=== PATIENT | female | born 1980 | race Caucasian/White ===

== ENCOUNTER → 2017-12-02 | Outpatient (CLI) | payer BC ==
[~2017-12-02] MED LIST: ALPR0.5T PO; BUPR300T43 PO; CLIN25GE TP; HYDR-3729 PO; IBUP-1773 PO; SPIR25TA PO; ZOLP10TA PO
--- NOTE | 2017-12-02 12:15 | Diagnostic Imaging Report ---
INDICATION: Dysfunction uterine bleeding. TECHNIQUE: Multiple realtime grayscale images were obtained of the pelvis in various projections endovaginally. Transabdominal imaging was also performed. FINDINGS: The uterus measures 8.2 x 5.2 x 4.4 cm. No myometrial mass is identified. There appears to be an IUD centered within the endometrial canal. Endometrium is approximately 11 mm in thickness. There is some heterogeneity of the endometrium near the cervix with some mild vascularity. No discrete cervical mass was visualized. The right ovary measures 2.2 x 2.4 x 2.4 cm and the left ovary measures 3.5 x 3.7 x 2.4 cm. The left ovary does contain a hypoechoic mass approximately 2.4 cm in size. This does contain some internal complexity and appears to be nonvascular. This may represent a complex cyst. The right ovary contains a 1.8 x 1.5 cm hypoechoic mass with internal complexity as well. This is nonvascular and this too may represent a complex cyst. No free fluid is seen. IMPRESSION: 1. The IUD appears to be appropriately centered within the endometrial canal. There is some mild heterogeneity to the cervix but no discrete cervical mass is detected. 2. Bilateral ovarian hypoechoic masses, suggestive of complex cysts. Followup ultrasound in 6-8 weeks could be performed to confirm stability and/or clearing. Dictated by: Dictated on workstation # [id number]
== END ==
LOC: RAD 11:07
PROVIDERS: ATTEND Nurse Practitioner
DX: N83.9 Noninflammatory disorder of ovary, fallopian tube and broad ligament, unspecified (principal); N80.9 Endometriosis, unspecified; Z97.5 Presence of (intrauterine) contraceptive device
CPT/HCPCS: 76830; 76856

== ENCOUNTER 2018-01-22 09:22 | Outpatient (CLI) | payer BC ==
[~2018-01-22] VITALS: Ht 167.6 cm; Wt 68.7 kg
[2018-01-22 11:16] LABS: BASOPHILS % (AUTO) 1 % (0-10); EOSINOPHILS # (AUTO) 0.1 10^3/uL (0.0-0.3); EOSINOPHILS % (AUTO) 1 % (0-10); HEMATOCRIT 38 % (35-52); HEMOGLOBIN 13.2 G/DL (11.5-16.0); LYMPHOCYTES # (AUTO) 1.5 X 10^3 (1.0-4.0); LYMPHOCYTES % (AUTO) 26 % (12-44); MEAN CORPUSCULAR HEMOGLOBIN 32 PG (25-34); MEAN CORPUSCULAR HGB CONC 35 G/DL (32-36); MEAN CORPUSCULAR VOLUME 91 FL (80-99); MEAN PLATELET VOLUME 11.6 FL (7.4-10.4); MONOCYTES # (AUTO) 0.7 X 10^3 (0.0-1.0); MONOCYTES % (AUTO) 12 % (0-12); NEUTROPHILS # (AUTO) 3.5 X 10^3 (1.8-7.8); NEUTROPHILS % (AUTO) 60 % (42-75); PLATELET COUNT 272 10^3/uL (130-400); RED BLOOD COUNT 4.19 10^6/uL (4.35-5.85); RED CELL DISTRIBUTION WIDTH 12.7 % (10.0-14.5); WHITE BLOOD COUNT 5.9 10^3/uL (4.3-11.0)
[2018-01-22 11:19] LABS: BILIRUBIN,URINE NEGATIVE (NEGATIVE); CLARITY,URINE CLEAR; COLOR,URINE YELLOW; GLUCOSE, URINE (UA) NEGATIVE (NEGATIVE); KETONES,URINE NEGATIVE (NEGATIVE); LEUKOCYTE ESTERASE ,URINE NEGATIVE (NEGATIVE); NITRITE,URINE NEGATIVE (NEGATIVE); PH,URINE 7 (5-9); PROTEIN,URINE NEGATIVE (NEGATIVE); UROBILINOGEN,URINE NORMAL (NORMAL)
[2018-01-22 11:28] LABS: BACTERIA,URINE NEGATIVE /HPF
[2018-01-22 16:20] VITALS: BP 123/58
[2018-01-22] MEDS ORDERED: MINO100C2 PO (16:25)
== END 2018-01-22 16:28 ==
LOC: PREOP 09:22
PROVIDERS: ATTEND Obstetrics & Gynecology
DX: Z01.812 Encounter for preprocedural laboratory examination (principal); Z11.2 Encounter for screening for other bacterial diseases; R10.2 Pelvic and perineal pain; N80.9 Endometriosis, unspecified
CPT/HCPCS: 36415; 81000; 85025; 86850; 86900; 86901; 87081

== ENCOUNTER 2018-02-04 06:00 | Day surgery (SDC) | payer BC ==
[~2018-02-04] VITALS: Ht 167.6 cm; Wt 68.7 kg
[~2018-02-04 06:00] MED LIST changes: +MINO100C2 PO
--- OUTSIDE RECORDS SUMMARY | 2018-02-04 06:12 | XMS REPORT | Continuity of Care Document ---
Author Author [facility] Organization [facility] Address Unknown Phone Unavailable Allergies Active Description Code Type Severity Reaction Onset Reported/Identified Relationship to Patient Clinical Status Yes No Allergy Information Available [id number] Drug Allergy Unknown N/A 2015 Yes dextromethorphan [id number] Drug Allergy Severe THROAT SWELLING 02/29/2016 Yes tramadol [id number] Drug Allergy Severe THROAT SWELLING 02/29/2016 Medications There is no data. Problems Date Dx Coded Attending Type Code Diagnosis Diagnosed By 11/23/2015 MELINA BARAHONA Ot R10.31 RIGHT LOWER QUADRANT PAIN 02/29/2016 Ot N94.6 DYSMENORRHEA , UNSPECIFIED 02/29/2016 Ot R10.2 PELVIC AND PERINEAL PAIN 02/29/2016 Ot Z01.818 ENCOUNTER FOR OTHER PREPROCEDURAL EXAMIN 03/01/2016 Ot N94.6 DYSMENORRHEA , UNSPECIFIED 03/01/2016 Ot R10.2 PELVIC AND PERINEAL PAIN 03/01/2016 Ot Z01.818 ENCOUNTER FOR OTHER PREPROCEDURAL EXAMIN 03/05/2016 MELINA BARAHONA Ot R10.31 RIGHT LOWER QUADRANT PAIN 03/05/2016 AYAD MOSQUEDA, ANTONIO N Ot N73.6 FEMALE PELVIC PERITONEAL ADHESIONS (POST 03/05/2016 AYAD MOSQUEDA, ANTONIO N Ot N80.0 ENDOMETRIOSIS OF UTERUS 03/05/2016 AYAD MOSQUEDA, ANTONIO N Ot N80.8 OTHER ENDOMETRIOSIS 03/05/2016 AYAD MOSQUEDA, ANTONIO N Ot Z11.2 ENCOUNTER FOR SCREENING FOR OTHER BACTER 03/07/2016 AYAD MOSQUEDA ANTONIO N Ot N73.6 FEMALE PELVIC PERITONEAL ADHESIONS (POST 03/07/2016 AYAD MOSQUEDA, ANTONIO N Ot N80.0 ENDOMETRIOSIS OF UTERUS 03/07/2016 AYAD MOSQUEDA, ANTONIO N Ot N80.8 OTHER ENDOMETRIOSIS 03/07/2016 AYAD MOSQUEDA, ANTONIO N Ot Z11.2 ENCOUNTER FOR SCREENING FOR OTHER BACTER 11/27/2017 MELINA BAARHONA [employer] Ot R10.31 RIGHT LOWER QUADRANT PAIN 12/04/2017 KEVIN JUNIORP Ot N80.9 ENDOMETRIOSIS, UNSPECIFIED 12/04/2017 KEVIN JUNIORP Ot N83.9 NONINFLAMMATORY DISORD OF OVARY, FALLOP 12/04/2017 KEVIN JUNIORP Ot N93.8 OTHER SPECIFIED ABNORMAL UTERINE AND VAG 12/04/2017 KEVIN JUNIORP Ot N94.6 DYSMENORRHEA, UNSPECIFIED 12/04/2017 QUICKKEVINP Ot Z97.5 PRESENCE OF (INTRAUTERINE) CONTRACEPTIVE 12/04/2017 KEVIN JUNIORP Ot N80.9 ENDOMETRIOSIS, UNSPECIFIED 12/04/2017 KEVIN JUNIORP Ot N83.9 NONINFLAMMATORY DISORD OF OVARY, FALLOP 12/04/2017 KEVIN JUNIORP Ot Z97.5 PRESENCE OF (INTRAUTERINE) CONTRACEPTIVE Procedures There is no data. Results Test Result Range Urine beta human chorionic gonadotropin (hCG) measurement - 03/05/16 11:55 Urine beta human chorionic gonadotropin (hCG) measurement NEGATIVE NEGATIVE Methicillin resistant Staphylococcus aureus (MRSA) screening culture - 12:10 Methicillin resistant Staphylococcus aureus (MRSA) screening culture NEG NRG Complete blood count (CBC) with automated white blood cell (WBC) differential - 03/05/16 12:21 Blood leukocytes automated count (number/volume) 5.2 10*3/uL 4.3-11.0 Blood erythrocytes automated count (number/volume) 4.45 10*6/uL 4.35-5.85 Venous blood hemoglobin measurement (mass/volume) 13.4 g/dL 11.5-16.0 Blood hematocrit (volume fraction) 39 % 35-52 Automated erythrocyte mean corpuscular volume 88 [foz_us] 80-99 Automated erythrocyte mean corpuscular hemoglobin (mass per erythrocyte) 30 pg 25-34 Automated erythrocyte mean corpuscular hemoglobin concentration measurement ( mass/volume) 34 g/dL 32-36 Automated erythrocyte distribution width ratio 12.6 % 10.0-14.5 Automated blood platelet count (count/volume) 223 10*3/uL 130-400 Automated blood platelet mean volume measurement 11.4 [foz_us] 7.4-10.4 Automated blood neutrophils/100 leukocytes 59 % 42-75 Automated blood lymphocytes/100 leukocytes 26 % 12-44 Blood monocytes/100 leukocytes 12 % 0-12 Automated blood eosinophils/100 leukocytes 2 % 0-10 Automated blood basophils/100 leukocytes 1 % 0-10 Blood neutrophils automated count (number/volume) 3.1 10*3 1.8-7.8 Blood lymphocytes automated count (number/volume) 1.4 10*3 1.0-4.0 Blood monocytes automated count (number/volume) 0.6 10*3 0.0-1.0 Automated eosinophil count 0.1 10*3/uL 0.0-0.3 Automated blood basophil count (count/volume) 0.0 10*3/uL 0.0-0.1 Blood type T Indirect antibody screen panel - 03/05/16 12:21 ABO+Rh group AN NRG Transfusion band number [id number] NRG Blood group antibody screen NEGATIVE NRG Complete urinalysis with reflex to culture - 01/22/18 10:45 Urine color determination YELLOW NRG Urine clarity determination CLEAR NRG Urine pH measurement by test strip 7 5-9 Specific gravity of urine by test strip 1.005 1.016- 1.022 Urine protein assay by test strip, semi-quantitative NEGATIVE NEGATIVE Urine glucose detection by automated test strip NEGATIVE NEGATIVE Erythrocytes detection in urine sediment by light microscopy NEGATIVE NEGATIVE Urine ketones detection by automated test strip NEGATIVE NEGATIVE Urine nitrite detection by test strip NEGATIVE NEGATIVE Urine total bilirubin detection by test strip NEGATIVE NEGATIVE Urine urobilinogen measurement by automated test strip (mass/volume) NORMAL NORMAL Urine leukocyte esterase detection by dipstick NEGATIVE NEGATIVE Automated urine sediment erythrocyte count by microscopy (number/high power field) NONE NRG Automated urine sediment leukocyte count by microscopy (number/high power field ) NONE NRG Bacteria detection in urine sediment by light microscopy NEGATIVE NRG Squamous epithelial cells detection in urine sediment by light microscopy 2-5 NRG Crystals detection in urine sediment by light microscopy NONE NRG Casts detection in urine sediment by light microscopy NONE NRG Mucus detection in urine sediment by light microscopy NEGATIVE NRG Complete urinalysis with reflex to culture NO NRG Complete blood count (CBC) with automated white blood cell (WBC) differential - 01/22/18 10:50 Blood leukocytes automated count (number/volume) 5.9 10*3/uL 4.3-11.0 Blood erythrocytes automated count (number/volume) 4.19 10*6/uL 4.35-5.85 Venous blood hemoglobin measurement (mass/volume) 13.2 g/dL 11.5-16.0 Blood hematocrit (volume fraction) 38 % 35-52 Automated erythrocyte mean corpuscular volume 91 [foz_us] 80-99 Automated erythrocyte mean corpuscular hemoglobin (mass per erythrocyte) 32 pg 25-34 Automated erythrocyte mean corpuscular hemoglobin concentration measurement ( mass/volume) 35 g/dL 32-36 Automated erythrocyte distribution width ratio 12.7 % 10.0-14.5 Automated blood platelet count (count/volume) 272 10*3/uL 130-400 Automated blood platelet mean volume measurement 11.6 [foz_us] 7.4-10.4 Automated blood neutrophils/100 leukocytes 60 % 42-75 Automated blood lymphocytes/100 leukocytes 26 % 12-44 Blood monocytes/100 leukocytes 12 % 0-12 Automated blood eosinophils/100 leukocytes 1 % 0-10 Automated blood basophils/100 leukocytes 1 % 0-10 Blood neutrophils automated count (number/volume) 3.5 10*3 1.8-7.8 Blood lymphocytes automated count (number/volume) 1.5 10*3 1.0-4.0 Blood monocytes automated count (number/volume) 0.7 10*3 0.0-1.0 Automated eosinophil count 0.1 10*3/uL 0.0-0.3 Automated blood basophil count (count/volume) 0.0 10*3/uL 0.0-0.1 Blood type T Indirect antibody screen panel - 01/22/18 10:50 ABO+Rh group AN NRG Blood group antibody screen NEGATIVE NRG Methicillin resistant Staphylococcus aureus (MRSA) screening culture - 11:00 Methicillin resistant Staphylococcus aureus (MRSA) screening culture NEG NRG Encounters ACCT No. Visit Date/Time Discharge Status Pt. Type Provider Facility Loc./Unit Complaint [id number] 12/02/2017 11:07:00 12/02/2017 23:59:59 CLS Outpatient KEVIN JUNIOR [facility] RAD DUB,DYSMENORRHEA [id number] 03/05/2016 11:47:00 03/05/2016 17:50:00 DIS Outpatient AYAD MOSQUEDA, ANTONIO [place] [facility] CHRONIC PELVIC PAIN [id number] 11/07/2015 13:27:00 11/07/2015 23:59:59 CLS Outpatient MELINA BARAHONA [facility] RAD RLQ PAIN [id number] 02/04/2018 08:00:00 PEN Preadmit SERAFIN CANCINO DO [facility] STAGE 3 ENDOMETRIOSIS, CPP [id number] 01/22/2018 11:17:00 Document Registration [id number] 02/29/2016 05:35:00 Document Registration
[2018-02-04 06:15] VITALS: BP 103/72
[2018-02-04] MEDS: LACTATED RINGERS 1,000 ML IV PRN ×3 (06:30→09:13)
[2018-02-04] MEDS ORDERED: LACTATED RINGERS 0 ML IV ONE (06:45)
[2018-02-04] MEDS ORDERED: MIDAZOLAM 2 MG/2 ML (VERSED) VIAL ONE (06:45)
[2018-02-04] MEDS ORDERED: SUCCINYLCHOLINE INJ 100 MG/5 ML SYR ONE (06:45)
[2018-02-04] MEDS ORDERED: ROCURONIUM 10 MG/ML 5 ML SYRINGE IV ONE ×2 (06:45→08:22)
[2018-02-04] MEDS ORDERED: fentaNYL INJECTION 100 MCG/2 ML AMP ONE (06:45)
[2018-02-04] MEDS ORDERED: proPOfol 200 MG/20 ML (DIPRIVAN) VIAL IV ONE (06:45)
[2018-02-04] MEDS ORDERED: metroNIDAZOLE 500MG/100ML IVPB 100 ML IV ONE (06:45)
[2018-02-04] MEDS ORDERED: ceFAZolin INJECTION 1,000 MG in NS (IVPB) 50 ML IV ONE (06:45)
[2018-02-04] MEDS ORDERED: LIDOCAINE PF 2% 5 ML (XYLOCAINE) VIAL ONE (06:45)
[2018-02-04] MEDS ORDERED: ONDANSETRON 4 MG/2 ML (SDV) Z0FRAN ONE (06:45)
[2018-02-04] MEDS ORDERED: SEVOFLURANE (ULTANE) 15 ML INHAL SOLN ONE ×13 (06:50→09:46)
--- NOTE | 2018-02-04 06:52 | Progress Note-Pre Operative ---
Pre-Operative Progress Note H&P Reviewed The H&P was reviewed, patient examined and no changes noted. Date Seen by Provider: Feb 04, 2018 Time Seen by Provider: 06:50 Date H&P Reviewed: Feb 04, 2018 Time H&P Reviewed: 06:45 Pre-Operative Diagnosis: endometriosis SERAFIN CANCINO DO Feb 04, 2018 06:52
[2018-02-04] MEDS ORDERED: BUPIVACAINE 0.25% 30 ML (SENSORCAINE) VIAL ONE (06:55)
[2018-02-04] MEDS ORDERED: BUP/EPI 0.5% 1:200,000 (SENSORCAINE) 30 ML VIAL ONE (06:57)
[2018-02-04] MEDS ORDERED: NS (IVPB) 50 ML ONE (06:59)
[2018-02-04] MEDS ORDERED: ceFAZolin 1,000 MG/10 ML (ANCEF) VIAL ONE (06:59)
[2018-02-04] MEDS ORDERED: metroNIDAZOLE 500MG/100ML IVPB 100 ML ONE (06:59)
[2018-02-04] MEDS ORDERED: DOCUSATE SODIUM 100 MG (COLACE) CAP PO PRN (07:45)
[2018-02-04] MEDS ORDERED: HYDROcodone/APAP 7.5 MG/325 MG (LORTAB, LORCET PLUS) TABLET PO PRN (07:45)
[2018-02-04] MEDS ORDERED: ANTACID SUSP 30 ML UDC (MYLANTA) PO PRN (07:45)
[2018-02-04] MEDS ORDERED: HYDROmorphone 1 MG/ML (DILAUDID) 1 ML SYRINGE IV PRN ×2 (07:45→10:15)
[2018-02-04] MEDS ORDERED: ONDANSETRON 4 MG/2 ML (SDV) Z0FRAN IV PRN (07:45)
[2018-02-04] MEDS ORDERED: LACTATED RINGERS 1,000 ML IV ONE ×2 (08:57→09:46)
--- NOTE | 2018-02-04 09:54 | Operative Report ---
Operative Report Date of Procedure/Surgery Feb 04, 2018 Surgeon (s) SERAFIN CANCINO DO Communication Center Operator (s): NA Post-Operative Diagnosis Stage IV endometriosis Procedure Performed RaTH, bilateral salpingectomy, bilateral ovarian cystectomy Description of Procedure Anesthesia Type: General Estimated blood loss (mL): 250 Specimen(s) collected/removed uterus, bilateral tubes and ovarian cysts Description of the Procedure After informed consent was obtained, patient was taken into the operating room where general anesthetic was found to be adequate. She was prepped and draped in the usual sterile fashion in the dorsal lithotomy position. A Bautista catheter was placed. A speculum was placed in the vagina. The anterior lip of the cervix was grasped with a sharp toothed tenaculum. The uterus was sounded and depth was approximately 8 cm centimeters. I placed the Rosie device. And then set the Rosie to 8 cm and a 3.5 cm collar was advanced over the cervix. I inserted the Rosie without difficulty, inflating the balloon and securing it around the fornix of the cervix. The collar was then secured with sutures at 12 o'clock. Attention was then turned to the patient's abdomen. A supraumbilical incision was made about 8 mm (above her periumbilical tattoo). A Veress needle was inserted and I confirmed intraabdominal placement with a drop in pressure and the saline drop test. I then insufflated the abdomen to a maximum of 15 mmHg with warmed CO2 gas. I then placed an 8 mm trocar and then the Da Paula camera and intraperitoneal placement was confirmed. I then determined the procedure could be continued robotically. The first robotic port was placed about 15 cm lateral to the right and left of the umbilical placement and slightly inferior. These are both 8 mm trocars. These were placed under direct visualization of the laparoscope. 0.25% Marcaine was injected prior to placement of all trocars. When all placements were confirmed, the patient was placed in steep Trendelenburg allowing adequate visualization and the robot was brought in for docking. The docking was accomplished without difficulty. A survey of the pelvis confirmed the above mentioned findings. Findings consistent with stage IV endometriosis with above mentioned findings. There were bilateral ovarian cysts adherent to the posterior uterus and consistent with endometriomas. I attempted to dissect these off without rupture but they ruptured despite gentle dissection. I then spent over 45 minutes dissection the bowel off the posterior uterus and culdesac including the cysts and tubes. Once the dissection was done, i copiously irrigated and then proceeded with the hysterectomy. Now I was able to visualize the round ligaments bilaterally and grasped them and cauterized with bipolar cautery and then cut with my jeannie. At this point , I then did bilateral salpingectomy. I cut along the mesosalpinx with the monopolar jeannie and then dissected up to the cornu bilaterally. I then moved to the uteroovarian ligaments. I sealed the vessel and transected bilaterally using the bipolar cautery and then cut with the monopolar jeannie. I then moved my dissection to the posterior leaves of the broad ligament. I dissected the posterior leaves of the broad ligament off the uterine arteries skeletonizing them bilaterally. I then took a second clamp with the bipolar cautery and with the jeannie, transected the vessels away from the lateral aspect to the cervical stroma. I dissected the anterior peritoneum off the lower uterine segment. I continually pushed the bladder back and I took excessively great care and I was eventually able to dissect the vesicouterine peritoneum off the lower uterine segment. There was an Derrick Masters window in the posterior culdesac near the bilateral uterosacral ligament. I then dissected the ovarian cysts bilaterally removing the cysts and placing in the culdesac. I then dissected in a V fashion towards the midline between the uterosacral ligaments. This allowed me to skeletonize the uterine vessels bilaterally. The balloon on the ROSIE was insufflated. This allowed me to see the ROSIE circumferentially. I then performed a colpotomy anteriorly and then amputate with cervix away from the vaginal fornix. I then continued the colpotomy circumferentially. Once this was performed, the communication assistant removed the uterus through the vagina. A sponge was left in the vagina to maintain pneumoperitoneum. I then began closure of the vaginal cuff. I closed the apices of the vaginal cuff with 2-0 Vicryl V lock sutures with a colposuspension through the uterosacral ligaments. This suspended the apices of the vaginal cuff. I extended this to the midline from both sides and overlapped the V lock sutures in the midline. Excellent closure is noted and hemostasis is achieved. I was able to now see the ureters bilaterally and these are well away from the area of dissection. There was superficial bleeding due to extensive dissection. This was irrigated and then FloSeal was placed along the areas of dissection. I sent bilateral ovarian cysts from the endometriomas for pathology. All the needles were removed from the patient's abdomen. The gas removed from the abdomen and the fascial incision was closed with 0- vicryl in a figure of eight fashion and then the skin incisions closed with 4-0 Monocryl in cuticular fashion and then [place] was placed. Bandages were placed Sponge and instrument counts correct times two. Patient awakened and taken to recover in stable condition. While Ebl was not excessive, there was superficial peritoneal bleeding from the dissection for she will be admitted to monitor VS and recheck hemoglobin. HGB will be repeated in the Recovery room and then this afternoon/evening. Findings of the Procedure stage IV endometriosis, with obliteraion of the posterior culdesac and bowel adherane to the posterior uterus and posterior culdesac bilateral endometriomas with adherance to the ovarina fossae bilaterally Allergies and Home Medications Allergies Coded Allergies: dextromethorphan (Verified Allergy, Severe, THROAT SWELLING, 02/29/16) tramadol (Verified Allergy, Severe, THROAT SWELLING (see notes), 02/04/18) Patient has received Lortab during previous admissions w/o issue Home Medications Acetaminophen 500 Mg Tablet, 1,000 MG PO Q6HR PRN for PAIN-MILD Prescribed by: SERAFIN CANCINO on 02/05/18708 Bupropion HCl 300 Mg Tab.er.24h, 300 MG PO DAILY, (Reported) Clindamycin Phos/Benzoyl Perox 25 Gm Gel..gram., 25 GM TP DAILY, (Reported) Docusate Sodium 100 Mg Capsule, 100 MG PO DAILYbibd Prescribed by: SERAFIN CANCINO on 02/05/18708 Ibuprofen 600 Mg Tablet, 600 MG PO Q6H PRN for PAIN-MILD Prescribed by: SERAFIN CANCINO on 02/05/18708 Minocycline HCl 100 Mg Capsule, 100 MG PO BID, (Reported) Norethindrone Acetate 5 Mg Tablet, 5 MG PO DAILY Prescribed by: SERAFIN CANCINO on 02/05/18901 Oxycodone HCl 5 Mg Tablet, 5 MG PO Q6H PRN for ABDOMINAL PAIN Prescribed by: SERAFIN CANCINO on 02/05/18901 Promethazine HCl 25 Mg Tablet, 25 MG PO Q6H PRN for NAUSEA/VOMITING Prescribed by: SERAFIN CANCINO on 02/05/18 0902 Simethicone 80 Mg Tab.chew, 40 MG PO TID PRN for INDIGESTION Prescribed by: SERAFIN CANCINO on 02/05/18 0709 Spironolactone 25 Mg Tablet, 50 MG PO DAILY, (Reported) Zolpidem Tartrate 10 Mg Tablet, 10 MG PO PRN, (Reported) Patient Home Medication List Home Medication List Reviewed: SERAFIN Mathias DO Feb 04, 2018 09:54
[2018-02-04] MEDS ORDERED: KETOROLAC 30 MG/ML VIAL ONE ×2 (09:57→23:10)
[2018-02-04] MEDS ORDERED: morphine INJ 10 MG/ML 1ML (SYR OR VIAL) ONE (09:58)
[2018-02-04] MEDS ORDERED: MEPERIDINE (DEMEROL) INJ 50 MG/ML IVP PRN (10:15)
[2018-02-04] MEDS ORDERED: ONDANSETRON 4 MG/2 ML (SDV) Z0FRAN IVP PRN (10:15)
[2018-02-04] MEDS: KETOROLAC 30 MG/ML VIAL IV PRN ×2 (10:19→16:31)
[2018-02-04] MEDS: morphine INJ 10 MG/ML 1ML (SYR OR VIAL) IVP PRN ×2 (10:26→10:33)
[2018-02-04] MEDS ORDERED: HYDROmorphone 1 MG/ML (DILAUDID) 1 ML SYRINGE ONE ×2 (10:44→11:38)
[2018-02-04] MEDS: LACTATED RINGERS 1,000 ML IV SCH ×3 (10:44→21:54)
[2018-02-04 11:22] VITALS: BP 100/65
[2018-02-04 13:06] LABS: BASOPHILS % (AUTO) 0 % (0-10); EOSINOPHILS % (AUTO) 0 % (0-10); HEMATOCRIT 36 % (35-52); HEMOGLOBIN 11.8 G/DL (11.5-16.0); LYMPHOCYTES # (AUTO) 0.3 X 10^3 (1.0-4.0); LYMPHOCYTES % (AUTO) 2 % (12-44); MEAN CORPUSCULAR HEMOGLOBIN 31 PG (25-34); MEAN CORPUSCULAR HGB CONC 33 G/DL (32-36); MEAN CORPUSCULAR VOLUME 93 FL (80-99); MEAN PLATELET VOLUME 11.3 FL (7.4-10.4); MONOCYTES # (AUTO) 0.3 X 10^3 (0.0-1.0); MONOCYTES % (AUTO) 2 % (0-12); NEUTROPHILS # (AUTO) 13.7 X 10^3 (1.8-7.8); NEUTROPHILS % (AUTO) 96 % (42-75); PLATELET COUNT 213 10^3/uL (130-400); RED BLOOD COUNT 3.86 10^6/uL (4.35-5.85); RED CELL DISTRIBUTION WIDTH 13.4 % (10.0-14.5); WHITE BLOOD COUNT 14.3 10^3/uL (4.3-11.0)
[2018-02-04 13:23] LABS: BUN/CREATININE RATIO 13; CALCIUM 8.2 MG/DL (8.5-10.1); CARBON DIOXIDE 25 MMOL/L (21-32); CHLORIDE 108 MMOL/L (98-107); CREATININE SERUM 0.69 MG/DL (0.60-1.30); GFR ESTIMATED > 60; GLUCOSE 135 MG/DL (70-105); POTASSIUM 3.9 MMOL/L (3.6-5.0); SODIUM 139 MMOL/L (135-145)
[2018-02-04 13:39] LABS: BAND NEUTROPHILS 3 %; LYMPHOCYTES % (MANUAL) 2 %; MONOCYTES % (MANUAL) 2 %; NEUTROPHILS % (MANUAL) 93 %
[2018-02-04 13:40] LABS: RBC MORPH NORMAL
[2018-02-04] MEDS: SIMETHICONE 80 MG (MYLICON) CHEW PO PRN ×2 (14:30→16:32)
[2018-02-04 16:49] VITALS: BP 106/67
[2018-02-04 19:20] VITALS: BP 98/65
[2018-02-04] MEDS ORDERED: ACETAMINOPHEN 500 MG TAB (TYLENOL) ONE (21:48)
[2018-02-04] MEDS: ACETAMINOPHEN 500 MG TAB (TYLENOL) PO PRN (21:54)
[2018-02-04 23:18] VITALS: BP 107/64
[2018-02-05] MEDS ORDERED: IBUPROFEN 600 MG (MOTRIN) TAB PO PRN (00:30)
[2018-02-05] MEDS: ACETAMINOPHEN 500 MG TAB (TYLENOL) PO PRN (03:34)
[2018-02-05 05:34] LABS: BASOPHILS % (AUTO) 0 % (0-10); EOSINOPHILS # (AUTO) 0.1 10^3/uL (0.0-0.3); EOSINOPHILS % (AUTO) 1 % (0-10); HEMATOCRIT 30 % (35-52); HEMOGLOBIN 9.9 G/DL (11.5-16.0); LYMPHOCYTES # (AUTO) 1.4 X 10^3 (1.0-4.0); LYMPHOCYTES % (AUTO) 11 % (12-44); MEAN CORPUSCULAR HEMOGLOBIN 30 PG (25-34); MEAN CORPUSCULAR HGB CONC 33 G/DL (32-36); MEAN CORPUSCULAR VOLUME 93 FL (80-99); MEAN PLATELET VOLUME 11.2 FL (7.4-10.4); MONOCYTES # (AUTO) 0.6 X 10^3 (0.0-1.0); MONOCYTES % (AUTO) 5 % (0-12); NEUTROPHILS # (AUTO) 10.8 X 10^3 (1.8-7.8); NEUTROPHILS % (AUTO) 84 % (42-75); PLATELET COUNT 183 10^3/uL (130-400); RED BLOOD COUNT 3.26 10^6/uL (4.35-5.85); RED CELL DISTRIBUTION WIDTH 13.7 % (10.0-14.5); WHITE BLOOD COUNT 12.9 10^3/uL (4.3-11.0)
[2018-02-05 05:45] VITALS: BP 93/56
[2018-02-05 05:54] LABS: BUN/CREATININE RATIO 9; CARBON DIOXIDE 21 MMOL/L (21-32); CHLORIDE 109 MMOL/L (98-107); CREATININE SERUM 0.65 MG/DL (0.60-1.30); GFR ESTIMATED > 60; GLUCOSE 103 MG/DL (70-105); POTASSIUM 3.6 MMOL/L (3.6-5.0); SODIUM 139 MMOL/L (135-145)
[2018-02-05 06:04] LABS: BAND NEUTROPHILS 4 %; EOSINOPHILS % (MANUAL) 1 %; LYMPHOCYTES % (MANUAL) 9 %; MONOCYTES % (MANUAL) 3 %; NEUTROPHILS % (MANUAL) 83 %
[2018-02-05 06:05] LABS: RBC MORPH NORMAL
[2018-02-05] MEDS ORDERED: ACET-77 PO (07:09)
[2018-02-05] MEDS ORDERED: SIME80TA16 PO (07:09)
[2018-02-05] MEDS ORDERED: DOCU-143 PO (07:09)
[2018-02-05] MEDS ORDERED: IBUP-844 PO (07:09)
--- NOTE | 2018-02-05 07:12 | Discharge Inst-Women's Service ---
Discharge Inst-Women's Serv Depart Medication/Instructions New, Converted or Re-Newed RX: Transmitted to Pharmacy Instructions no lifting over 25 lbs no driving for 1 week nothing in the vagina for 12 weeks (until released) expect to have light spotting/bleeding for up to 10 days Final Diagnosis stage IV endometriosis acute blood loss, iron deficient, and dilutional anemia Consults/Follow Up Additional Follow Up: Yes (1 week for incision check and 10-12 weeks for pelvic exam/postoperative exam) Activity Activity: Activity as Tolerated (see above) Driving Instructions: No Driving for 1 Week NO SMOKING: NO SMOKING Nothing Inside Vagina: No Douching, No [place], No Tampons Diet Discharge Diet: No Restrictions Symptoms to Report to : Bleeding Excessive, Pain Increased, Fever Over 101 Degrees F, Vaginal Bleeding Increase, Cramps in Feet or Legs, Vaginal Discharge Foul For Any Problems or Questions: Contact Your Physician Skin/Wound Care Infection Signs and Symptoms: Increased Redness, Foul Odor of Wound, Increased Drainage, Skin Itchy or Has a Rash, Increased Swelling, Temperature Above 101 F Operative Area Clean and Dry: You May Remove Bandage (keep dressing in place for 3 days and then remove, unless soiled or wet (then can remove or change dressing)) Stitches/Kesha/Dermabond: Dermabond Bathing Instructions: SERAFIN Bone DO Feb 05, 2018 07:12
--- NOTE | 2018-02-05 07:14 | Physician Progress Note ---
Progress Note Assessment/Plan Date Seen by Provider: Feb 05, 2018 Time Seen by Provider: 08:50 Events since last exam due to extensiv adhesiolysis and superficial bleeding, she was kept overnight for observation. Hemoglobin is stable Assessment/Plan Plan discharge home Vitals Last set of Vitals Signs Vital Signs Date Time Temp Pulse Resp B/P (MAP) Pulse Ox O2 Delivery O2 Flow Rate FiO2 02/05/18 05:45 99.0 81 18 93/56 (68) 100 Room Air I&O I&O Intake and Output 02/05/18 00:00 Intake Total 3150 ml Output Total 690 ml Balance 2460 ml IV Total 3150 ml Output Urine Total 440 ml Estimated Blood Loss 250 ml Labs Laboratory Tests 02/04/18 12:55: White Blood Count 14.3H, Red Blood Count 3.86L, Hemoglobin 11.8, Hematocrit 36, Mean Corpuscular Volume 93, Mean Corpuscular Hemoglobin 31, Mean Corpuscular Hemoglobin Concent 33, Red Cell Distribution Width 13.4, Platelet Count 213, Mean Platelet Volume 11.3H, Neutrophils (%) (Auto) 96H, Lymphocytes (%) (Auto) 2L, Monocytes (%) (Auto) 2, Eosinophils (%) (Auto) 0, Basophils (%) (Auto) 0, Neutrophils # (Auto) 13.7H, Lymphocytes # (Auto) 0.3L, Monocytes # (Auto) 0.3, Eosinophils # (Auto) 0.0, Basophils # (Auto) 0.0, Neutrophils % (Manual) 93, Lymphocytes % (Manual) 2, Monocytes % (Manual) 2, Band Neutrophils 3, Blood Morphology Comment NORMAL, Sodium Level 139, Potassium Level 3.9, Chloride Level 108H, Carbon Dioxide Level 25, Anion Gap 6, Blood Urea Nitrogen 9, Creatinine 0.69, Estimat Glomerular Filtration Rate > 60, BUN/Creatinine Ratio 13, Glucose Level 135H, Calcium Level 8.2L 02/05/18 05:05: White Blood Count 12.9H, Red Blood Count 3.26L, Hemoglobin 9.9L, Hematocrit 30L , Mean Corpuscular Volume 93, Mean Corpuscular Hemoglobin 30, Mean Corpuscular Hemoglobin Concent 33, Red Cell Distribution Width 13.7, Platelet Count 183, Mean Platelet Volume 11.2H, Neutrophils (%) (Auto) 84H, Lymphocytes (%) (Auto) 11L, Monocytes (%) (Auto) 5, Eosinophils (%) (Auto) 1, Basophils (%) (Auto) 0, Neutrophils # (Auto) 10.8H, Lymphocytes # (Auto) 1.4, Monocytes # (Auto) 0.6, Eosinophils # (Auto) 0.1, Basophils # (Auto) 0.0, Neutrophils % (Manual) 83, Lymphocytes % (Manual) 9, Monocytes % (Manual) 3, Band Neutrophils 4, Blood Morphology Comment NORMAL, Sodium Level 139, Potassium Level 3.6, Chloride Level 109H, Carbon Dioxide Level 21, Anion Gap 9, Blood Urea Nitrogen 6L, Creatinine 0.65, Estimat Glomerular Filtration Rate > 60, BUN/Creatinine Ratio 9 , Glucose Level 103, Calcium Level 8.0L, Eosinophils % (Manual) 1 SERAFIN CANCINO DO Feb 05, 2018 7:14 am
[2018-02-05 07:45] VITALS: BP 99/62
[2018-02-05] MEDS: SIMETHICONE 80 MG (MYLICON) CHEW PO PRN (07:51)
[2018-02-05] MEDS ORDERED: PROM25TA14 PO (09:02)
[2018-02-05] MEDS ORDERED: OXYC-529 PO (09:02)
[2018-02-05] MEDS ORDERED: NORE5TAB2 PO (09:02)
[2018-02-05] MEDS ORDERED: HYDROmorphone 2 MG/ML VIAL (DILAUDID) IV PRN (10:15)
[2018-02-05 10:25] VITALS: BP 99/62
--- NOTE | 2018-02-05 11:03 | Anesthesia-General Post-Op ---
General Patient Condition Mental Status/LOC: Same as Preop Cardiovascular: Satisfactory Nausea/Vomiting: Absent Respiratory: Satisfactory Pain: Controlled Complications: Absent Post Op Complications Complications None Follow Up Care/Instructions Patient Instructions None needed. Anesthesia/Patient Condition Patient Condition Patient is doing well, no complaints, stable vital signs, no apparent adverse anesthesia problems. No complications reported per nursing. ABISAI HANDLEY CRNA Feb 05, 2018 11:03
== END 2018-02-05 10:25 | disposition home or self-care (01) ==
LOC: SDC 06:00 → WS 11:33 → SDC 02-05 10:25
PROVIDERS: ATTEND Obstetrics & Gynecology
DX: N80.0 Endometriosis of uterus (principal); N80.3 Endometriosis of pelvic peritoneum; N83.8 Other noninflammatory disorders of ovary, fallopian tube and broad ligament; K21.9 Gastro-esophageal reflux disease without esophagitis; F17.210 Nicotine dependence, cigarettes, uncomplicated
CPT/HCPCS: 36415; 80048; 84703; 85007; 85027; 86850; 86900; 86901; 88305; 88307; 94664